=== PATIENT | male | born 1965 | race Caucasian/White ===

== ENCOUNTER 2024-04-08 00:21 | Emergency (ER) | payer OTHER ==
[~2024-04-08] VITALS: Ht 170.2 cm; Wt 94.7 kg
[2024-04-08 00:27] VITALS: O2SAT 98
[2024-04-08] MEDS ORDERED: ONDANSETRON HCL 4MG/2ML INJ IV ONE (00:30)
[2024-04-08] MEDS ORDERED: MORPHINE SULFATE 4 MG/ML INJ (FOR IV/IM USE) IV ONE (00:30)
[2024-04-08] MEDS: MORPHINE SULFATE 4 MG/ML INJ (FOR IV/IM USE) IV NR (00:45)
[2024-04-08] MEDS: ONDANSETRON HCL 4MG/2ML INJ IV NR (00:45)
[2024-04-08 00:55] LABS: BASOPHILS % 0.8 % (0.0-2.0); EOSINOPHILS % 0.4 % (0.0-5.0); HEMATOCRIT. 40.7 % (42.0-52.0); HEMOGLOBIN. 14.1 g/dL (14.0-18.0); MEAN CORPUSCULAR HEMOGLOBIN 32.5 pg (28.0-32.0); MEAN CORPUSCULAR HGB CONC 34.6 g/dL (31.0-37.0); MEAN CORPUSCULAR VOLUME 94.1 fL (80.0-94.0); MEAN PLATELET VOLUME 7.9 fl (7.4-10.4); MONOCYTES % 6.3 % (2.0-8.0); NEUTROPHILS % 74.5 % (40.0-76.0); PLATELET 225 x1000/uL (130-400); RED BLOOD CELL COUNT 4.33 mill/uL (4.7-6.1); RED CELL DISTRIBUTION WIDTH 14.5 % (11.6-14.6); WHITE BLOOD COUNT 6.9 x1000/uL (4.5-11.0)
[2024-04-08 00:57] LABS: CLARITY URINE CLEAR (CLEAR); COLOR URINE YELLOW (YELLOW); GLUCOSE URINE NEGATIVE (NEGATIVE); KETONES URINE NEGATIVE (NEGATIVE); LEUKOCYTE ESTERASE URINE NEGATIVE (NEGATIVE); NITRITE URINE NEGATIVE (NEGATIVE); OCCULT BLOOD URINE NEGATIVE (NEGATIVE); PH URINE 5.5 (4.5-8.0); PROTEIN URINE NEGATIVE (NEGATIVE); SPECIFIC GRAVITY URINE 1.019 (1.005-1.030); UROBILINOGEN URINE 0.2 E.U./dL (0.2-1.0)
[2024-04-08 00:58] LABS: CHLORIDE 110 mEq/L (98-107); POTASSIUM 3.7 mEq/L (3.5-5.1); SODIUM 141 mEq/L (136-145)
[2024-04-08 00:59] LABS: CARBON DIOXIDE 25 mEq/L (21-32)
[2024-04-08 01:00] LABS: CALCIUM 9.1 mg/dL (8.7-10.4)
[2024-04-08 01:04] LABS: GLUCOSE 114 mg/dL (70-105)
[2024-04-08 01:05] LABS: ETHANOL BLOOD < 10 mg/dL (<10); UREA NITROGEN BLOOD 11 mg/dL (9-23)
[2024-04-08 01:06] LABS: ALANINE AMINOTRANSFERASE 30 IU/L (10-49); ASPARTATE AMINOTRANSFERASE 30 IU/L (<34)
[2024-04-08 01:07] LABS: *AMPHETAMINES SCREEN URINE PRESUMPTIVE POSITIVE (NEGATIVE); *BARBITURATES SCREEN URINE NEGATIVE (NEGATIVE); *BENZODIAZEPINES SCREEN URINE NEGATIVE (NEGATIVE); *COCAINE SCREEN URINE NEGATIVE (NEGATIVE); CANNABINOID URINE SCREEN NEGATIVE (NEGATIVE); ECSTASY MDMA SCREEN URINE CONF.TEST INDICATED (NEGATIVE); METHADONE URINE SCREEN NEGATIVE (NEGATIVE); OPIATES URINE SCREEN NEGATIVE (NEGATIVE); PHENCYCLIDINE URINE SCREEN NEGATIVE (NEGATIVE)
[2024-04-08 02:18] LABS: INR 0.9; PARTIAL THROMBOPLASTIN TIME 25.9 sec (23.4-31.0); PROTHROMBIN TIME 10.4 sec (9.6-11.0)
[2024-04-08 03:09] LABS: BILIRUBIN TOTAL 0.3 mg/dL (0.1-1.0); PROTEIN TOTAL 6.1 g/dL (6.0-8.3)
[2024-04-08 03:19] LABS: BILIRUBIN DIRECT < 0.1 mg/dL (<=3.0)
[2024-04-08 03:20] LABS: TROPONIN I HIGH SENSITIVITY 993 ng/L (3.0-53)
[2024-04-08] MEDS ORDERED: IPRATROPIUM/ALBUTEROL 0.5-3(2.5)MG/3ML NEB HHN PRN (04:15)
[2024-04-08] MEDS ORDERED: NITROGLYCERIN 0.4MG TABLET SL SL PRN (04:15)
[2024-04-08] MEDS ORDERED: ACETAMINOPHEN 325MG TABLET PO PRN (04:15)
[2024-04-08] MEDS ORDERED: DOCUSATE SODIUM 100MG CAPSULE PO PRN (04:15)
[2024-04-08] MEDS ORDERED: CLONIDINE 0.1MG TABLET PO PRN (04:15)
[2024-04-08] MEDS ORDERED: ONDANSETRON HCL 4MG/2ML INJ IV PRN (04:15)
[2024-04-08] MEDS ORDERED: ZOLPIDEM TARTRATE 5MG TABLET PO PRN (04:15)
[2024-04-08] MEDS ORDERED: GUAIFENESIN 200MG/10ML SUGAR FREE UDC PO PRN (04:15)
[2024-04-08] MEDS ORDERED: LORAZEPAM 0.5MG TABLET PO PRN (04:15)
[2024-04-08] MEDS: HEPARIN 60 UNITS/KG BOLUS IV NR (04:21)
[2024-04-08] MEDS: HEPARIN 25,000 UNITS PREMIX 250 ML IV SCH (04:30)
[2024-04-08 04:31] LABS: TROPONIN I HIGH SENSITIVITY 2397 ng/L (3.0-53)
[2024-04-08 05:35] LABS: CREATINE KINASE MB FRACTION 37.8 ng/mL (0.5-3.6)
[2024-04-08] MEDS ORDERED: ENOXAPARIN 100MG/ML SYR SUBCUT SCH (06:00)
[2024-04-08] MEDS: ENOXAPARIN 100MG/ML SYR SUBCUT SCH (06:09)
[2024-04-08] MEDS: ACETAMINOPHEN 325MG TABLET PO PRN (06:10)
[2024-04-08 07:26] VITALS: BP 94/64; PULSE 50; RESP 15; TEMP 37.05852; O2SAT 99
[2024-04-08] MEDS ORDERED: ASPIRIN 325MG EC TABLET PO SCH (09:00)
[2024-04-08] MEDS ORDERED: ASPIRIN 81MG TABLET PO SCH (09:00)
[2024-04-08] MEDS ORDERED: HEPARIN BOLUS PRN aPTT 30-44 IV (14:00)
[2024-04-08] MEDS ORDERED: HEPARIN BOLUS PRN aPTT <30 IV (14:00)
== END 2024-04-08 08:30 | disposition left against medical advice (07) ==
LOC: ER 00:31
DX: I24.9 Acute ischemic heart disease, unspecified (principal); I21.4 Non-ST elevation (NSTEMI) myocardial infarction; F15.10 Other stimulant abuse, uncomplicated; I25.2 Old myocardial infarction
CPT/HCPCS: 80061; 80076; 80305; 80048; 81003; 80320; 82550; 82553; 83036; 83880; 83690; 85025; 85610; 85730; 84484; 36415; 71045; 93970; 93005; 96365; 96372; 96375; 99291; J1650; J1644 ×2; J2405; J2270; C1893; G0480